=== PATIENT | male | born 1960 | race Caucasian/White ===

== ENCOUNTER → 2017-04-03 | Outpatient (CLI) | payer OTHER | LOC: BMCIMAGING 15:51 | PROVIDERS: ATTEND Podiatrist Foot & Ankle Surgery | DX: M79.672 Pain in left foot (principal); M79.89 Other specified soft tissue disorders ==

== ENCOUNTER → 2017-06-20 | Outpatient (CLI) | payer OTHER | LOC: FIMAGING 15:30 | PROVIDERS: ATTEND Orthopaedic Surgery | DX: Z01.818 Encounter for other preprocedural examination (principal); M17.11 Unilateral primary osteoarthritis, right knee ==

== ENCOUNTER 2017-07-10 06:06 | Inpatient (IN) | payer OTHER ==
[~2017-07-10 06:06] MED LIST: ROPIVACAINE 0.2% 80 MG, EPINEPHrine 0.2 MG, KETOROLAC TROMETHAMINE 30 MG in BAG 0 ML IU ONE; TRANEXAMIC ACID 3,000 MG in NS 50 ML IRR ONE
[2017-07-10] MEDS ORDERED: ACETAMINOPHEN 325 MG TAB PO ONE (06:20)
[2017-07-10] MEDS ORDERED: ceFAZolin 2 GM/SWFI 2 GM/20 ML SYR IVP ONE (06:20)
[2017-07-10] MEDS ORDERED: DEXAMETHASONE 4 MG/ML VIAL IVP ONE (06:20)
[2017-07-10] MEDS ORDERED: FAMOTIDINE 20 MG TAB PO ONE (06:20)
[2017-07-10] MEDS ORDERED: LR 1,000 ML IV ONE (06:21)
[2017-07-10] MEDS ORDERED: LIDOCAINE 1% 2 ML INJ ID PRN (06:21)
[2017-07-10] MEDS ORDERED: TRANEXAMIC ACID 3,000 MG/50 ML BAG IRR ONE (06:34)
[2017-07-10] MEDS ORDERED: VANCOMYCIN 1 GM VIAL ONE (06:35)
--- NOTE | 2017-07-10 06:59 | PDANEPAE ---
ANE History of Present Illness Patient presents for Right TKA ANE Past Medical History - Cardiovascular History Hx Hypertension: Yes Hx Arrhythmias: No Hx Chest Pain: No Hx Coronary Artery / Peripheral Vascular Disease: No Hx CHF / Valvular Disease: No Hx Palpitations: No Cardiovascular History Comment: pcp monitors bp meds - Pulmonary History Hx COPD: No Hx Asthma/Reactive Airway Disease: Yes Hx Recent Upper Respiratory Infection: No Hx Oxygen in Use at Home: No Hx Sleep Apnea: No Sleep Apnea Screening Result - Last Documented: Positive Pulmonary History Comment: asthma with allergies- uses inhaler seasonally. 1998 went septic with PNA - Neurologic History Hx Cerebrovascular Accident: No Hx Seizures: No Hx Dementia: No - Endocrine History Hx Diabetes: No - Renal History Hx Renal Disorders: No - Liver History Hx Hepatic Disorders: No - Neurological & Psychiatric Hx Hx Neurological and Psychiatric Disorders: No - Cancer History Hx Cancer: No - Congenital Disorder History Hx Congenital Disorders: No - GI History Hx Gastrointestinal Disorders: Yes Gastrointestinal History Comment: reflux - Other Health History Other Health History: OA R knees- occ pain in L shoulder - Chronic Pain History Chronic Pain: Yes (bilateral knees and shoulders) - Surgical History Prior Surgeries: R total shoulder 06-10. 1983 left foot surgery. bilateral carpal tunnel surgery ANE Review of Systems Review of Systems: - Exercise capacity METS (RN): 4 METS ANE Patient History - Allergies Allergies/Adverse Reactions: Penicillins Allergy (Verified 06/17/17 10:17) Anaphylaxis - Home Medications Home medications: home medication list seen and reviewed Home Medications: Albuterol [Proventil Inhaler HFA (*)] 1 - 2 puffs IH Q4H PRN 06/04/16 [Last Taken Unknown] Loratadine [Claritin 10 mg] 10 mg PO DAILY 06/04/16 [Last Taken 06/13/16 06:30] Montelukast Sodium [Singulair 10 mg (*)] 10 mg PO DAILY@1800 06/04/16 [Last Taken 06/13/16 06:30] Omeprazole [Prilosec 20 mg] 20 mg PO DAILY 06/04/16 [Last Taken 06/13/16 06:30] amLODIPine BESYLATE/BENAZEPRIL [Lotrel 5/20 mg Cap (*)] 1 each PO DAILY [Last Taken 06/13/16 06:30] - NPO status NPO Status: no food or drink >8 hours NPO Since - Liquids (Date): 07/09/17 NPO Since - Liquids (Time): 20:00 NPO Since - Solids (Date): 07/09/17 NPO Since - Solids (Time): 19:00 - Anes Hx Hx Anesthesia Complications (with details): Patient has a history of developing an inflammatory reaction after surgery. This typically manifests as swollen/ painful joints. - Smoking Hx Smoking Status: Former smoker - Family Anes Hx Family Hx Anesthesia Complications: none ANE Labs/Vital Signs - Vital Signs Blood Pressure: 127/85 Heart Rate: 95 Respiratory Rate: 18 O2 Sat (%): 94 Height: 171.45 cm Weight: 92.986 kg
[2017-07-10] MEDS ORDERED: MIDAZOLAM 2 MG/2 ML VIAL IVP ONE (07:01)
--- NOTE | 2017-07-10 07:01 | PDANEPAE ---
ANE History of Present Illness Patient presents for R TKA ANE Past Medical History - Cardiovascular History Hx Hypertension: Yes Hx Arrhythmias: No Hx Chest Pain: No Hx Coronary Artery / Peripheral Vascular Disease: No Hx CHF / Valvular Disease: No Hx Palpitations: No Cardiovascular History Comment: pcp monitors bp meds - Pulmonary History Hx COPD: No Hx Asthma/Reactive Airway Disease: Yes Hx Recent Upper Respiratory Infection: No Hx Oxygen in Use at Home: No Hx Sleep Apnea: No Sleep Apnea Screening Result - Last Documented: Positive Pulmonary History Comment: asthma with allergies- uses inhaler seasonally. 1998 went septic with PNA - Neurologic History Hx Cerebrovascular Accident: No Hx Seizures: No Hx Dementia: No - Endocrine History Hx Diabetes: No - Renal History Hx Renal Disorders: No - Liver History Hx Hepatic Disorders: No - Neurological & Psychiatric Hx Hx Neurological and Psychiatric Disorders: No - Cancer History Hx Cancer: No - Congenital Disorder History Hx Congenital Disorders: No - GI History Hx Gastrointestinal Disorders: Yes Gastrointestinal History Comment: reflux - Other Health History Other Health History: OA R knees- occ pain in L shoulder - Chronic Pain History Chronic Pain: Yes (bilateral knees and shoulders) - Surgical History Prior Surgeries: R total shoulder 06-10. 1983 left foot surgery. bilateral carpal tunnel surgery ANE Review of Systems Review of Systems: - Exercise capacity METS (RN): 4 METS ANE Patient History - Allergies Allergies/Adverse Reactions: Penicillins Allergy (Verified 06/17/17 10:17) Anaphylaxis - Home Medications Home medications: home medication list seen and reviewed Home Medications: Albuterol [Proventil Inhaler HFA (*)] 1 - 2 puffs IH Q4H PRN 06/04/16 [Last Taken Unknown] Loratadine [Claritin 10 mg] 10 mg PO DAILY 06/04/16 [Last Taken 06/13/16 06:30] Montelukast Sodium [Singulair 10 mg (*)] 10 mg PO DAILY@1800 06/04/16 [Last Taken 06/13/16 06:30] Omeprazole [Prilosec 20 mg] 20 mg PO DAILY 06/04/16 [Last Taken 06/13/16 06:30] amLODIPine BESYLATE/BENAZEPRIL [Lotrel 5/20 mg Cap (*)] 1 each PO DAILY [Last Taken 06/13/16 06:30] - NPO status NPO Status: no food or drink >8 hours NPO Since - Liquids (Date): 07/09/17 NPO Since - Liquids (Time): 20:00 NPO Since - Solids (Date): 07/09/17 NPO Since - Solids (Time): 19:00 - Anes Hx Anes Hx: post operative nausea, post operative nausea and vomiting Hx Anesthesia Complications (with details): Patient has a history of developing an inflammatory reaction after surgery. This manifests as swollen painful joints. - Smoking Hx Smoking Status: Former smoker - Family Anes Hx Family Hx Anesthesia Complications: none ANE Labs/Vital Signs - Vital Signs Blood Pressure: 127/85 Heart Rate: 95 Respiratory Rate: 18 O2 Sat (%): 94 Height: 171.45 cm Weight: 92.986 kg ANE Physical Exam - Airway Neck exam: FROM Mallampati Score: Class 2 Mouth exam: normal dental/mouth exam - Pulmonary Pulmonary: no respiratory distress - Cardiovascular Cardiovascular: regular rate and rhythym - ASA Status ASA Status: II ANE Anesthesia Plan Anesthesia Plan: spinal Regional Anesthesia: single shot NB (RBA discussed)
[2017-07-10] MEDS ORDERED: MIDAZOLAM 2 MG/2 ML VIAL ONE (07:02)
[2017-07-10] MEDS ORDERED: BUPIVACAINE 0.5% 30 ML SDV ONE (07:05)
[2017-07-10] MEDS ORDERED: PROPOFOL/EMULSION 500 MG/50 ML BOTTLE IV ONE ×2 (07:06→08:04)
[2017-07-10] MEDS ORDERED: ceFAZolin 2 GM/SWFI 20 ML SYR IVP ONE (07:12)
[2017-07-10] MEDS ORDERED: fentaNYL 100 MCG/2 ML INJ ONE (07:15)
[2017-07-10] MEDS ORDERED: LIDOCAINE 2% 5 ML SDV ONE (07:15)
--- NOTE | 2017-07-10 07:25 | PDHPUP ---
History & Physical Update H&P update statement: This history and physical update is based on an assessment of the patient which was completed after admission or registration (within 24 hours), but prior to the surgery/procedure. H&P update: H&P reviewed & patient examined, no change in patient's condition since H&P completed
[2017-07-10] MEDS ORDERED: ROPIVACAINE HCL 150 MG/30 ML INJ ONE (07:37)
[2017-07-10] MEDS ORDERED: ONDANSETRON 4 MG/2 ML VIAL ONE (08:22)
[2017-07-10] MEDS ORDERED: ONDANSETRON 4 MG/2 ML VIAL IVP PRN ×2 (08:36→08:57)
[2017-07-10] MEDS ORDERED: OXYCODONE/APAP 5/325 TAB PO PRN (08:36)
[2017-07-10] MEDS ORDERED: HYDROCODONE/APAP 5/325 TAB PO PRN (08:36)
[2017-07-10] MEDS ORDERED: NALOXONE HCL 0.4 MG/ML INJ IVP PRN (08:36)
[2017-07-10] MEDS ORDERED: fentaNYL 100 MCG/2 ML INJ IVP PRN (08:36)
[2017-07-10] MEDS ORDERED: ONDANSETRON DISINTEGRATING 4 MG TAB PO PRN (08:57)
[2017-07-10] MEDS ORDERED: TEMAZEPAM 15 MG CAP PO PRN (08:57)
[2017-07-10] MEDS ORDERED: POLYETHYLENE GLYCOL 3350 17 GM PKT PO PRN (08:57)
[2017-07-10] MEDS ORDERED: LACTULOSE 20 GM/30 ML UDCUP PO PRN (08:57)
[2017-07-10] MEDS ORDERED: METOCLOPRAMIDE 10 MG/2 ML VIAL IVP PRN (08:57)
[2017-07-10] MEDS ORDERED: BISACODYL 10 MG SUPP PR PRN (08:57)
[2017-07-10] MEDS ORDERED: PROMETHAZINE HCL 25 MG SUPPR PR PRN (08:57)
[2017-07-10] MEDS ORDERED: MAGNESIUM HYDROXIDE 30 ML UDCUP PO PRN (08:57)
[2017-07-10] MEDS ORDERED: diphenhydrAMINE 25 MG CAP PO PRN (08:57)
[2017-07-10] MEDS ORDERED: DIPHENOXYLATE/ATROPINE LOMOTIL 1 TAB PO PRN (08:57)
[2017-07-10] MEDS ORDERED: PROMETHAZINE HCL 25 MG/ML INJ IVP PRN (08:57)
--- NOTE | 2017-07-10 08:57 | POSTOPPROG ---
Post Op Note Date of Operation: 07/10/17 Surgeon: Ej Alonso Bulb Sorter: edilia alonso Anesthesiologist: dr. kate Anesthesia: Spinal, Other (Specify) (adductor canal block) Pre-op Diagnosis: R knee OA Post-op Diagnosis: same Indication: right knee pain due to OA that failed conservative measures Procedure: R TKA robot assisted Findings: severe knee OA Inf/Abcess present in the surg proc area at time of surgery?: No EBL: 50-100
[2017-07-10] MEDS ORDERED: LR 1,000 ML IV SCH (09:00)
--- NOTE | 2017-07-10 09:08 | POSTANESTH ---
Post Anesthetic Evaluation Cardiovascular Status: Normal, Stable, Similar to Pre-Op Cond Respiratory Status: Similar to Pre-op Cond. Level of Consciousness/Mental Status: Can Participate in Eval Pain Control: Adequate, Prn Tx Ordered Nausea/Vomiting Control: Adequate, Prn Tx Ordered Complications Possibly Related to Anesthesia: None Noted
[2017-07-10] MEDS: ACETAMINOPHEN 325 MG TAB PO SCH ×2 (12:13→17:21)
[2017-07-10] MEDS: CYCLOBENZAPRINE 10 MG TAB PO PRN ×2 (12:13→22:15)
[2017-07-10] MEDS: ceFAZolin 2 GM/DEXTROSE 100 ML IV SCH ×2 (14:33→21:15)
[2017-07-10] MEDS: SENNOSIDES/DOCUSATE SODIUM TAB PO SCH ×2 (14:46→21:14)
[2017-07-10] MEDS: oxyCODONE IR 5 MG TAB PO PRN (18:56)
[2017-07-10] MEDS: FAMOTIDINE 20 MG TAB PO SCH (21:14)
[2017-07-10] MEDS: ASPIRIN 325 MG TAB PO SCH (21:14)
[2017-07-11] MEDS: ACETAMINOPHEN 325 MG TAB PO SCH ×2 (00:02→06:05)
[2017-07-11 04:43] VITALS: O2SAT 94
[2017-07-11] MEDS: CYCLOBENZAPRINE 10 MG TAB PO PRN (04:52)
[2017-07-11 05:00] LABS: HEMATOCRIT 35.9 % (40.0-51.0)
[2017-07-11] MEDS ORDERED: ALBUTEROL 200 PUFFS/18 GM MDI IH PRN (06:49)
[2017-07-11 07:28] VITALS: PULSE 89; RESP 14; TEMP 98.7
[2017-07-11] MEDS: oxyCODONE IR 5 MG TAB PO PRN (07:39)
[2017-07-11] MEDS ORDERED: VALSARTAN PO SCH (09:00)
[2017-07-11] MEDS ORDERED: VALSARTAN 160 MG TAB PO SCH (09:00)
[2017-07-11] MEDS ORDERED: PANTOPRAZOLE SODIUM 40 MG TAB PO SCH (09:00)
[2017-07-11] MEDS ORDERED: NON-FORMULARY NEW DRUG (Omeprazole [Prilosec 20 Mg] 20 MG) PO SCH (09:00)
[2017-07-11] MEDS ORDERED: AMLODIPINE PO SCH (09:00)
[2017-07-11] MEDS: ASPIRIN 325 MG TAB PO SCH (09:26)
[2017-07-11] MEDS: SENNOSIDES/DOCUSATE SODIUM TAB PO SCH (09:26)
[2017-07-11] MEDS: FAMOTIDINE 20 MG TAB PO SCH (09:27)
[2017-07-11 09:30] VITALS: BP 139/87
--- NOTE | 2017-07-11 10:41 | SOAPPROG ---
SOAP Progress Note Assessment/Plan: Assessment: Patient is doing well POD 1 s/p R TKA Pain management: pain is well controlled on oral pain meds. VTE ppx: recommend aspirin daily for 3 weeks, cont LATONIA and SCDs Anemia: level is expected initially postop. Asymptomatic. Continue to monitor D/c planning: d/c to home today pending release from PT Plan: 07/11/17 10:40 Subjective: Dejan is doing well today, denies SOB, chest pain and N/V Objective: Vital Signs Temp Pulse Resp BP Pulse Ox 37.1 C 89 14 139/87 H 94 07/11/17 07:26 07/11/17 07:26 07/11/17 07:26 07/11/17 09:27 07/11/17 07:26 Laboratory Results 07/11/17 04:30 07/10/17 07/11/17 07/12/17 05:59 05:59 05:59 Intake Total 5356 Output Total 1101 Balance 4255 RLE; incision dressing is clean and dry, NVI, +pf/df ICD10 Worksheet Patient Problems: Problems Problem Status Onset Primary localized osteoarthritis of right knee Acute H/O shoulder surgery Acute
--- NOTE | 2017-07-11 12:06 | ASDISCHSUM ---
Discharge Information Plan Status:Home with No Needs Medically Cleared to Leave: Discharge Date:07/11/2017 11:33 AM CM D/C Disposition:Home, Routine, Self-Care ADT D/C Disposition:Home, Routine, Self-Care Projected Discharge Date:07/11/2017 11:33 AM Transportation at D/C: Discharge Delay Reason: Follow-Up Date:07/11/2017 11:33 AM Discharge Slot: Final Diagnosis: Placement Information Patient Contact Information Contact Name:TALITA Relationship: Address:[address] Work Phone: City:[facility] Phone: [facility]/Zip Code:[place] [address] Email: Financial Information Financial Class:HMO and PPO Plans Primary Plan Desc: SHARATH GALDAMEZ Primary Plan Number:[id number] Secondary Plan Desc: Secondary Plan Number: Assessment Information Intervention Information
--- NOTE | 2017-07-11 17:48 | GOP ---
[f rep st] OPERATIVE REPORT DATE OF OPERATION: 07/10/2017 SURGEON: Rogelio Long MD CHICKEN HANGER: NASREEN Dozier. ANESTHESIA: Spinal. PREOPERATIVE DIAGNOSIS: Right knee osteoarthrosis POSTOPERATIVE DIAGNOSIS: Right knee osteoarthrosis PROCEDURE PERFORMED: Total knee arthroplasty with computer navigation and robotic assist. FINDINGS/PATHOLOGY: Severe medial compartment and patellofemoral osteoarthritis. ESTIMATED BLOOD LOSS: 30 cc. INDICATIONS: This is a 57-year-old male with severe and progressive pain and deformity of the right knee unresponsive to conservative care. Risks and benefits of the surgical intervention were explained in detail. DESCRIPTION OF PROCEDURE: The patient was brought to the operative room and placed on the table in the supine position. Spinal anesthesia was induced without difficulty. A pneumatic tourniquet was applied about the right proximal thigh, and the leg was prepped and draped in a sterile fashion. The leg werner was applied. After exsanguination by elevation the tourniquet was inflated to 275 mm of mercury. Incision was made anterior medial from the tibial tuberosity to a point 2 cm proximal to the superior pole of the patella. Medial parapatellar arthrotomy was carried out from the superior pole of the patella and posteriorly in line with the fibers of the Type II VMO. The medial collateral ligament was elevated and the infrapatellar fat pad was resected. The patella was everted and the articular surface was excised. A 35 mm patellar button was placed. Attention was turned first to the distal aspect of the right femur. At 3 cm proximal to the medial rise of the femur, 2 percutaneous half pins were placed for fixation of the femoral array. In a similar fashion, 2 pins were placed anteromedial on the tibia for fixation of the tibial array. External land marking and registration of the hip center was performed without difficulty. Internal femoral and tibial registration was carried out without difficulty and the femoral and tibial checkpoints were placed and verified for accuracy. Attention was turned to the femur. The foot print for the size 4 femoral component was cut with the saw using the [employer] robotic system and verified for accuracy against the CT based plan. In a similar fashion, saw was used to cut the footprint for the size 5 tibial component using the [employer] system and verified for accuracy against the CT based plan. The tibial articular surface was excised without difficulty, followed by the intercondylar box cut. The knee was extended and the remnants of the medial and lateral meniscus were excised. The posterior capsule was injected with ropivacaine, epinephrine and Toradol. A size 5 MIS mini-keel tibial tray was positioned. Trial reduction was then carried out. There was excellent range of motion, alignment, and stability using the 9 mm polyethylene. All trials were then removed. The joint was thoroughly irrigated and carefully dried. Two packages of cement and 2 grams of vancomycin were mixed in the vacuum mixer and placed on the fixation surfaces of all surfaces of the components. The components were implanted and all excess cement was thoroughly removed. The permanent 9 mm polyethylene was placed without difficulty. The tourniquet was deflated and all bleeders were coagulated. The wound was thoroughly irrigated and closed using interrupted sutures of 2-0 Vicryl for the joint capsule. The subcu was closed with 3-0 Vicryl and the skin with 4-0 Monocryl. Dermabond and Steri-Strips were applied followed by a compressive dressing. The patient was then moved from the operating room to the recovery room in good condition, having tolerated the procedure well. /[id number]/MODL MTDD
--- NOTE | 2017-07-12 19:03 | GDS ---
[f rep st] DISCHARGE SUMMARY ADMISSION DIAGNOSIS: Right knee osteoarthritis. DISCHARGE DIAGNOSIS: Right knee osteoarthritis. PROCEDURE: Right total knee arthroplasty, robot-assisted. VTE PROPHYLAXIS: Aspirin recommended, 3 weeks, daily. BRIEF DESCRIPTION OF HOSPITAL STAY: Patient was admitted for an elective joint arthroplasty. The pa juan carlos tolerated the procedure well and has passed physical therapy. The patient was given appropriat e antibiotic prophylaxis and venous thromboembolism prophylaxis. The patient's pain was well control led on oral pain medication, patient was holding down food, and had urinated. Decision was made to d ischarge the patient. The patient was given post-operative prescriptions pre-operatively. PLAN: To follow up as scheduled, Dr. Long office on July 29 at 12:45 p.m. /[id number]/MODL
== END 2017-07-11 11:33 | disposition home or self-care (01) | DRG 470 ==
LOC: F3N 06:06 → EDSTATUS 11:15
PROVIDERS: ADMIT Orthopaedic Surgery; ATTEND Orthopaedic Surgery
DX: M17.11 Unilateral primary osteoarthritis, right knee (principal); I10 Essential (primary) hypertension; J45.909 Unspecified asthma, uncomplicated; K21.9 Gastro-esophageal reflux disease without esophagitis
CPT/HCPCS: 97116-GP; 97161-GP; 97165-GO; C1713; J0171; J0690; J1100; J1885; J2250; J2405; J2704; J2795; J3010; J3370

== ENCOUNTER → 2017-08-07 | Outpatient (CLI) | payer OTHER | LOC: FIMAGING 15:58 | PROVIDERS: ATTEND Orthopaedic Surgery | DX: Z01.818 Encounter for other preprocedural examination (principal); M17.12 Unilateral primary osteoarthritis, left knee ==

== ENCOUNTER 2017-08-23 06:58 | Inpatient (IN) | payer OTHER ==
[~2017-08-23 06:58] MED LIST changes: -ROPIVACAINE 0.2% 80 MG, EPINEPHrine 0.2 MG, KETOROLAC TROMETHAMINE 30 MG in BAG 0 ML IU ONE; +ROPIVACAINE 0.2% 80 MG, EPINEPHrine 0.2 MG, KETOROLAC TROMETHAMINE 30 MG in SYRINGE 0 ML IU ONE
[2017-08-23] MEDS ORDERED: DEXAMETHASONE 4 MG/ML VIAL IVP ONE (07:30)
[2017-08-23] MEDS ORDERED: ACETAMINOPHEN 325 MG TAB PO ONE (07:30)
[2017-08-23] MEDS ORDERED: ceFAZolin 2 GM/SWFI 2 GM/20 ML SYR IVP ONE (07:30)
[2017-08-23] MEDS ORDERED: FAMOTIDINE 20 MG TAB PO ONE (07:30)
[2017-08-23] MEDS ORDERED: LR 1,000 ML IV ONE (07:31)
[2017-08-23] MEDS ORDERED: LIDOCAINE 1% 2 ML INJ ID PRN (07:31)
[2017-08-23] MEDS ORDERED: TRANEXAMIC ACID 3,000 MG/50 ML BAG IRR ONE (07:39)
[2017-08-23] MEDS ORDERED: VANCOMYCIN 1 GM VIAL ONE (07:39)
[2017-08-23] MEDS ORDERED: MIDAZOLAM 2 MG/2 ML VIAL ONE (08:54)
[2017-08-23] MEDS ORDERED: BUPIVACAINE 0.5% 30 ML SDV ONE (08:56)
[2017-08-23] MEDS ORDERED: PROPOFOL/EMULSION 500 MG/50 ML BOTTLE IV ONE (08:57)
[2017-08-23] MEDS ORDERED: LIDOCAINE 2% 5 ML SDV ONE (08:58)
[2017-08-23] MEDS ORDERED: MIDAZOLAM 2 MG/2 ML VIAL IVP ONE (08:59)
--- NOTE | 2017-08-23 09:01 | PDANEPAE ---
ANE History of Present Illness left TKA ANE Past Medical History - Cardiovascular History Hx Hypertension: Yes Hx Arrhythmias: No Hx Chest Pain: No Hx Coronary Artery / Peripheral Vascular Disease: No Hx CHF / Valvular Disease: No Hx Palpitations: No Cardiovascular History Comment: pcp monitors bp meds - Pulmonary History Hx COPD: No Hx Asthma/Reactive Airway Disease: Yes Hx Recent Upper Respiratory Infection: No Hx Oxygen in Use at Home: No Hx Sleep Apnea: No Sleep Apnea Screening Result - Last Documented: Positive Pulmonary History Comment: asthma with allergies- uses inhaler seasonally. 1998 went septic with PNA - Neurologic History Hx Cerebrovascular Accident: No Hx Seizures: No Hx Dementia: No - Endocrine History Hx Diabetes: No Hypothyroid: No Hyperthyroid: No Obesity: no - Renal History Hx Renal Disorders: No - Liver History Hx Hepatic Disorders: No - Neurological & Psychiatric Hx Hx Neurological and Psychiatric Disorders: No - Cancer History Hx Cancer: No - Congenital Disorder History Hx Congenital Disorders: No - GI History Hx Gastrointestinal Disorders: Yes Gastrointestinal History Comment: reflux - Other Health History Other Health History: OA R knees- occ pain in L shoulder - Chronic Pain History Chronic Pain: Yes (bilateral knees and shoulders) - Surgical History Prior Surgeries: R total shoulder 06-10. 1983 left foot surgery. bilateral carpal tunnel surgery ANE Review of Systems Review of systems is: negative Review of Systems: - Exercise capacity METS (RN): 4 METS ANE Patient History - Allergies Allergies/Adverse Reactions: Penicillins Allergy (Verified 08/01/17 17:08) Anaphylaxis - Home Medications Home medications: home medication list seen and reviewed Home Medications: Albuterol [Proventil Inhaler HFA (*)] 1 - 2 puffs IH Q4H PRN 06/04/16 [Last Taken 08/22/17 18:00] Loratadine [Claritin 10 mg] 10 mg PO DAILY 06/04/16 [Last Taken 08/22/17 15:00] Montelukast Sodium [Singulair 10 mg (*)] 10 mg PO DAILY 06/04/16 [Last Taken 06:15] Omeprazole [Prilosec 20 mg] 20 mg PO DAILY 06/04/16 [Last Taken 08/23/17 06:15] amLODIPine/VALSARTAN [Amlodipine-Valsartan 10-160 mg] 1 each PO DAILY 07/10/17 [ Last Taken 08/23/17 06:15] - NPO status NPO Since - Liquids (Date): 08/22/17 NPO Since - Liquids (Time): 22:00 NPO Since - Solids (Date): 08/22/17 NPO Since - Solids (Time): 19:00 - Smoking Hx Smoking Status: Former smoker - Family Anes Hx Family Hx Anesthesia Complications: none ANE Labs/Vital Signs - Vital Signs Blood Pressure: 137/90 Heart Rate: 95 Respiratory Rate: 16 O2 Sat (%): 94 Height: 171.45 cm Weight: 92.986 kg ANE Physical Exam - Airway Neck exam: FROM Mallampati Score: Class 2 Mouth exam: normal dental/mouth exam - Pulmonary Pulmonary: no respiratory distress - Cardiovascular Cardiovascular: regular rate and rhythym - ASA Status ASA Status: II ANE Anesthesia Plan Anesthesia Plan: spinal Regional Anesthesia: single shot NB, adductor canal FNB
[2017-08-23] MEDS ORDERED: fentaNYL 100 MCG/2 ML INJ ONE (09:32)
[2017-08-23] MEDS ORDERED: PROMETHAZINE HCL 25 MG/ML INJ IVP PRN (09:49)
[2017-08-23] MEDS ORDERED: ONDANSETRON DISINTEGRATING 4 MG TAB PO PRN (09:49)
[2017-08-23] MEDS ORDERED: METOCLOPRAMIDE 10 MG/2 ML VIAL IVP PRN (09:49)
[2017-08-23] MEDS ORDERED: diphenhydrAMINE 25 MG CAP PO PRN (09:49)
[2017-08-23] MEDS ORDERED: MAGNESIUM HYDROXIDE 30 ML UDCUP PO PRN (09:49)
[2017-08-23] MEDS ORDERED: PROMETHAZINE HCL 25 MG SUPPR PR PRN (09:49)
[2017-08-23] MEDS ORDERED: BISACODYL 10 MG SUPP PR PRN (09:49)
[2017-08-23] MEDS ORDERED: ONDANSETRON 4 MG/2 ML VIAL IVP PRN ×2 (09:49→10:05)
[2017-08-23] MEDS ORDERED: POLYETHYLENE GLYCOL 3350 17 GM PKT PO PRN (09:49)
[2017-08-23] MEDS ORDERED: DIPHENOXYLATE/ATROPINE LOMOTIL 1 TAB PO PRN (09:49)
[2017-08-23] MEDS ORDERED: TEMAZEPAM 15 MG CAP PO PRN (09:49)
[2017-08-23] MEDS ORDERED: LACTULOSE 20 GM/30 ML UDCUP PO PRN (09:49)
[2017-08-23] MEDS ORDERED: PROPOFOL 200 MG/20 ML VIAL ONE ×2 (09:57)
[2017-08-23] MEDS ORDERED: LR 1,000 ML IV SCH (10:00)
[2017-08-23] MEDS ORDERED: NALOXONE HCL 0.4 MG/ML INJ IVP PRN (10:05)
[2017-08-23] MEDS ORDERED: ALBUTEROL 3 ML DEYVIAL IH PRN (10:05)
[2017-08-23] MEDS ORDERED: fentaNYL 100 MCG/2 ML INJ IVP PRN (10:05)
[2017-08-23] MEDS ORDERED: OXYCODONE/APAP 5/325 TAB PO PRN (10:05)
[2017-08-23] MEDS ORDERED: HYDROCODONE/APAP 5/325 TAB PO PRN (10:05)
[2017-08-23] MEDS ORDERED: ACETAMINOPHEN 500 MG TAB PO PRN (10:05)
[2017-08-23] MEDS ORDERED: HYDROmorphONE/DILAUDID 1 MG/ML INJ IVP PRN (10:05)
--- NOTE | 2017-08-23 10:44 | POSTOPPROG ---
Post Op Note Date of Operation: 08/23/17 Surgeon: Ej Alonso Clinical Lab Assistant: edilia alonso Anesthesiologist: dr. salinas Anesthesia: Spinal Pre-op Diagnosis: left knee OA Post-op Diagnosis: same Indication: left knee pain due to OA that failed conservative measures Procedure: L TKA robot assisted Findings: severe knee OA Inf/Abcess present in the surg proc area at time of surgery?: No EBL: 50-100
--- NOTE | 2017-08-23 11:12 | POSTANESTH ---
Post Anesthetic Evaluation Cardiovascular Status: Normal, Stable Respiratory Status: Normal, Stable Level of Consciousness/Mental Status: Can Participate in Eval, Alert and Oriented Pain Control: Adequate, Prn Tx Ordered Nausea/Vomiting Control: Adequate, Prn Tx Ordered Complications Possibly Related to Anesthesia: None Noted
[2017-08-23] MEDS ORDERED: ALBUTEROL 200 PUFFS/18 GM MDI IH PRN (11:38)
[2017-08-23] MEDS: ACETAMINOPHEN 325 MG TAB PO SCH ×2 (13:51→17:24)
[2017-08-23] MEDS ORDERED: ceFAZolin 2 GM/DEXTROSE 100 ML IV SCH (14:00)
[2017-08-23] MEDS: CYCLOBENZAPRINE 10 MG TAB PO PRN (14:29)
[2017-08-23] MEDS: ceFAZolin 2 GM/DEXTROSE 100 ML IV SCH (16:27)
[2017-08-23] MEDS: SENNOSIDES/DOCUSATE SODIUM TAB PO SCH (19:57)
[2017-08-23] MEDS: FAMOTIDINE 20 MG TAB PO SCH (19:58)
[2017-08-23] MEDS: oxyCODONE IR 5 MG TAB PO PRN (20:49)
[2017-08-23] MEDS: ASPIRIN EC 325 MG TAB PO SCH (20:49)
[2017-08-24] MEDS: ACETAMINOPHEN 325 MG TAB PO SCH ×2 (00:26→05:54)
[2017-08-24] MEDS: ceFAZolin 2 GM/DEXTROSE 100 ML IV SCH (00:26)
[2017-08-24] MEDS: oxyCODONE IR 5 MG TAB PO PRN (00:27)
[2017-08-24 08:14] VITALS: RESP 16
[2017-08-24] MEDS ORDERED: VALSARTAN 160 MG TAB PO SCH (09:00)
[2017-08-24] MEDS ORDERED: NON-FORMULARY NEW DRUG (Omeprazole [Prilosec 20 Mg] 20 MG) PO SCH (09:00)
[2017-08-24] MEDS ORDERED: PANTOPRAZOLE SODIUM 40 MG TAB PO SCH (09:00)
[2017-08-24] MEDS ORDERED: VALSARTAN PO SCH (09:00)
[2017-08-24] MEDS ORDERED: AMLODIPINE PO SCH (09:00)
[2017-08-24] MEDS: SENNOSIDES/DOCUSATE SODIUM TAB PO SCH (09:19)
[2017-08-24] MEDS: ASPIRIN EC 325 MG TAB PO SCH (09:19)
[2017-08-24] MEDS: CYCLOBENZAPRINE 10 MG TAB PO PRN (09:19)
[2017-08-24] MEDS: FAMOTIDINE 20 MG TAB PO SCH (09:20)
--- NOTE | 2017-08-24 10:03 | ASMTCMCOM ---
CM Note CM Note Notes: Patient is POD #[address] Long. He is recovering well. Patient lives independently with . He has his R knee replaced 6 weeks ago and has a good understanding of his limitations at home. He will follow up with outpatient PT when appropriate. Date Signed: 08/24/2017 10:03 AM Electronically Signed By:Roxie Rene RN
--- NOTE | 2017-08-24 11:50 | SOAPPROG ---
SOAP Progress Note Assessment/Plan: Assessment: Patient is doing well POD 1 s/p L TKA pain is well controlled anemia: level expected initially postop VTE ppx: recommend aspirin 325 mg oncedaily for 3 weeks postop D/c planning: d/c to home today Plan: 08/24/17 11:49 Subjective: Dejan is eager for d/c. dressed and resting comfortably in bed, denies SOB, chest pain and N/V. Objective: Vital Signs Temp Pulse Resp BP Pulse Ox 36.9 C 99 16 132/88 H 93 08/24/17 08:00 08/24/17 08:00 08/24/17 08:00 08/24/17 08:00 08/24/17 08:00 Laboratory Results 08/24/17 05:17 08/23/17 08/24/17 08/25/17 05:59 05:59 05:59 Intake Total 1690 Output Total 800 Balance 890 LLE: incision dressing is clean and dry, NVI, +pf/df ICD10 Worksheet Patient Problems: Problems Problem Status Onset Primary localized osteoarthritis of left knee Acute H/O shoulder surgery Acute Primary localized osteoarthritis of right knee Acute
[2017-08-24 11:53] VITALS: BP 133/88; PULSE 84; TEMP 98.2; O2SAT 96
--- NOTE | 2017-08-24 15:09 | ASDISCHSUM ---
Discharge Information Plan Status:Home with No Needs Medically Cleared to Leave: Discharge Date:08/24/2017 12:04 PM CM D/C Disposition:Home, Routine, Self-Care ADT D/C Disposition:Home, Routine, Self-Care Projected Discharge Date:08/24/2017 12:04 PM Transportation at D/C:Family Discharge Delay Reason: Follow-Up Date:08/24/2017 12:04 PM Discharge Slot: Final Diagnosis: Placement Information Patient Contact Information Contact Name:TALITA Relationship: Address:[address] Work Phone: City:[facility] Phone: [facility]/Zip Code:[place] [address] Email: Financial Information Financial Class:HMO and PPO Plans Primary Plan Desc:Offerial LILLIAN GALDAMEZ Primary Plan Number:[id number] Secondary Plan Desc: Secondary Plan Number: Assessment Information CM Circulation Supervisor Assessment CM Note CM Note Notes: Dejan is planning to discharge home, independently. He is anticipating starting outpatient physical therapy 7 to 10 days after his surgery. He has a walker and has all of his medications ready to go. Date Signed: 08/09/2017 12:28 PM Electronically Signed By:Radha Solares [facility] CM Progress Note CM Note CM Note Notes: Patient is POD #[address] Long. He is recovering well. Patient lives independently with . He has his R knee replaced 6 weeks ago and has a good understanding of his limitations at home. He will follow up with outpatient PT when appropriate. Date Signed: 08/24/2017 10:03 AM Electronically Signed By:Roxie Rene RN Intervention Information
--- NOTE | 2017-08-25 11:05 | GOP ---
[f rep st] OPERATIVE REPORT DATE OF OPERATION: 08/23/2017 SURGEON: Rogelio Long MD EXPANSION JOINT FINISHER: NASREEN Dyson. ANESTHESIA: Spinal. PREOPERATIVE DIAGNOSIS: Left knee osteoarthritis. POSTOPERATIVE DIAGNOSIS: Left knee osteoarthritis. PROCEDURE PERFORMED: Total knee arthroplasty with computer navigation and robotic assist. FINDINGS/PATHOLOGY: Severe medial and patellofemoral osteoarthritis. ESTIMATED BLOOD LOSS: 30 cc. INDICATIONS: This is a 57-year-old male with severe and progressive pain and deformity of the left knee unresponsive to conservative care. Risks and benefits of the surgical intervention were explained in detail. DESCRIPTION OF PROCEDURE: The patient was brought to the operative room and placed on the table in the supine position. Spinal anesthesia was induced without difficulty. A pneumatic tourniquet was applied about the left proximal thigh, and the leg was prepped and draped in a sterile fashion. The leg werner was applied. After exsanguination by elevation the tourniquet was inflated to 275 mm of mercury. Incision was made anterior medial from the tibial tuberosity to a point 2 cm proximal to the superior pole of the patella. Medial parapatellar arthrotomy was carried out from the superior pole of the patella and posteriorly in line with the fibers of the Type II VMO. The medial collateral ligament was elevated and the infrapatellar fat pad was resected. The patella was everted and the articular surface was excised. A 35 mm patellar button was placed. Attention was turned first to the distal aspect of the left femur. At 3 cm proximal to the medial rise of the femur, 2 percutaneous half pins were placed for fixation of the femoral array. In a similar fashion, 2 pins were placed anteromedial on the tibia for fixation of the tibial array. External land marking and registration of the hip center was performed without difficulty. Internal femoral and tibial registration was carried out without difficulty and the femoral and tibial checkpoints were placed and verified for accuracy. Attention was turned to the femur. The foot print for the size 4 femoral component was cut with the saw using the [employer] robotic system and verified for accuracy against the CT based plan. In a similar fashion, saw was used to cut the footprint for the size 5 tibial component using the [employer] system and verified for accuracy against the CT based plan. The tibial articular surface was excised without difficulty, followed by the intercondylar box cut. The knee was extended and the remnants of the medial and lateral meniscus were excised. The posterior capsule was injected with ropivacaine, epinephrine and Toradol. A size 5 MIS mini-keel tibial tray was positioned. Trial reduction was then carried out. There was excellent range of motion, alignment, and stability using the 9 mm polyethylene. All trials were then removed. The joint was thoroughly irrigated and carefully dried. Two packages of cement and 2 grams of vancomycin were mixed in the vacuum mixer and placed on the fixation surfaces of all surfaces of the components. The components were implanted and all excess cement was thoroughly removed. The permanent 9 mm polyethylene was placed without difficulty. The tourniquet was deflated and all bleeders were coagulated. The wound was thoroughly irrigated and closed using interrupted sutures of 2-0 Vicryl for the joint capsule. The subcu was closed with 3-0 Vicryl and the skin with 4-0 Monocryl. Dermabond and Steri-Strips were applied followed by a compressive dressing. The patient was then moved from the operating room to the recovery room in good condition, having tolerated the procedure well. /[id number]/[id number] MTDD
== END 2017-08-24 12:04 | disposition home or self-care (01) | DRG 470 ==
LOC: F3N 06:58
PROVIDERS: ADMIT Orthopaedic Surgery; ATTEND Orthopaedic Surgery
DX: M17.12 Unilateral primary osteoarthritis, left knee (principal); I10 Essential (primary) hypertension; K21.9 Gastro-esophageal reflux disease without esophagitis; M10.9 Gout, unspecified
CPT/HCPCS: 97110-GP; 97116-GP; 97161-GP; C1713; J0171; J0690; J1100; J1885; J2250; J2704; J2795; J3010; J3370